=== PATIENT | male | born 1965 | race Caucasian/White ===

== ENCOUNTER 2021-03-28 11:36 | Emergency (ER) | payer OTHER ==
[~2021-03-28] VITALS: Ht 160 cm; Wt 52.0 kg
[2021-03-28 14:01] VITALS: BP 141/78
[2021-03-28] MEDS ORDERED: AZIT-84 PO (17:02)
[2021-03-28] MEDS ORDERED: BENZ-70 PO (17:23)
[2021-03-28 19:08] LABS: COVID AG,FIA SOURCE NASOPHARYNGEAL
== END 2021-03-28 18:30 | disposition home or self-care (01) ==
LOC: EMS 11:36
DX: J18.9 Pneumonia, unspecified organism (principal); E11.9 Type 2 diabetes mellitus without complications; E78.00 Pure hypercholesterolemia, unspecified; Z20.822 Contact with and (suspected) exposure to COVID-19
CPT/HCPCS: 71046; 87426; 99284; C9803